=== PATIENT | male | born 1960 | race Caucasian/White ===

== ENCOUNTER 2017-01-18 14:53 | Emergency (ER) | payer OTHER ==
[2017-01-18 15:05] VITALS: BP 173/94; PULSE 101; TEMP 97.9; BMI 28.3
--- NOTE | 2017-01-18 15:42 | PDOC ---
History of Present Illness - General Chief Complaint: Blood Pressure Problem Stated Complaint: SINUS Time Seen by Provider: 01/18/17 15:36 - History of Present Illness Initial Comments: 01/18/17 15:38 56 yo M with h/o HTN, seasonal allergies, and recurrent sinusitis who presents with sinus pressure. Patient endorses sinus pressure and dull frontal and maxillary sinus pain for the past 4 days. Also complains of congestion, rhinorrhea, mild non productive cough that have been stable for the past 4 days. Denies fevers/chills, N/V, teeth parviz, purulent discharge, ear pain, itching eyes, SOB, chest pain, lightheadedness, wheezing, hemtoptysis. No abdominal or urinary complaints. Has attempted OTC Tylenol and mucinex for past 4 days with no relief of symptoms. Compliant Losartan-HCTZ 25-100, Carvedilol 12.5 Nuclear stress test/Perfusion scan (05/02/16): Small mid inferior wall defect partially reversible. LVEF 73 %. PCP Dr. Christian Rosado. Past History - Past Medical History Allergies/Adverse Reactions: Allergies Allergy/AdvReac Type Severity Reaction Status Date / Time No Known Allergies Allergy Verified 01/18/17 15:00 Home Medications: Ambulatory Orders Amoxicillin/Potassium Clav [Augmentin 875-125 Tablet] 1 each PO BID #10 tablet MDD 2 tab 01/18/17 Losartan/Hydrochlorothiazide [Losartan-Hctz 100-25 mg Tab] 100 mg PO DAILY 01/18 COPD: No HTN: Yes Other medical history: SINUSITIS - Suicide/Smoking/Psychosocial Hx Smoking History: Never smoked Information on smoking cessation initiated: No Hx Alcohol Use: No Drug/Substance Use Hx: No Substance Use Type: None Review of Systems - Review of Systems Comments:: 01/18/17 15:41 GENERAL/CONSTITUTIONAL: No fever or chills. No weakness. HEAD, EYES, EARS, NOSE AND THROAT: No change in vision. No ear pain or discharge. No sore throat. CARDIOVASCULAR: No chest pain or shortness of breath RESPIRATORY: + congestion. No cough, wheezing, or hemoptysis. GASTROINTESTINAL: No nausea, vomiting, diarrhea or constipation. GENITOURINARY: No dysuria, frequency, or change in urination. MUSCULOSKELETAL: No joint or muscle swelling or pain. No neck or back pain. SKIN: No rash NEUROLOGIC: No headache, vertigo, loss of consciousness, or change in strength/ sensation. ENDOCRINE: No increased thirst. No abnormal weight change HEMATOLOGIC/LYMPHATIC: No anemia, easy bleeding, or history of blood clots. ALLERGIC/IMMUNOLOGIC: No hives or skin allergy. 1 *Physical Exam - Vital Signs Last Vital Signs Temp Pulse Resp BP Pulse Ox 97.9 F 101 H 18 173/94 99 01/18/17 14:57 01/18/17 14:57 01/18/17 14:57 01/18/17 14:57 01/18/17 14:57 - Physical Exam Comments: 01/18/17 15:42 GENERAL: Awake, alert, and fully oriented, in no acute distress HEAD: No signs of trauma, normocephalic, atraumatic EYES: PERRLA, EOMI, sclera anicteric, conjunctiva clear ENT: + Frontal and maxillary sinus ttp. Auricles normal inspection, hearing grossly normal, nares patent, oropharynx clear without exudates. Moist mucosa NECK: Normal ROM, supple, no lymphadenopathy, JVD, or masses LUNGS: No distress, speaks full sentences, clear to auscultation bilaterally HEART: Regular rate and rhythm, normal S1 and S2, no murmurs, rubs or gallops, peripheral pulses normal and equal bilaterally. EXTREMITIES : Normal inspection, Normal range of motion, no edema. No clubbing or cyanosis. NEUROLOGICAL: Cranial nerves II through XII grossly intact. Normal speech, normal gait, no focal sensorimotor deficits SKIN: Warm, Dry, normal turgor, no rashes or lesions noted. Medical Decision Making - Medical Decision Making 01/18/17 16:00 56 yo M with h/o HTN, seasonal allergies, and recurrent sinusitis who presents with sinus pressure and dull frontal/forehead and maxillary sinus pain for the past 4 days. Endorses, rhinorrhea, and intermittent mild non productive cough ( now resolved) that have been stable for the past 4 days. Denies fevers/chills, chest pain, SOB or lower respiratory tract symptoms. No other complaints. Physical exam with frontal and maxillary sinus ttp. BP of 173/94 in triage. Has attempted OTC Tylenol and mucinex for past 4 days with no relief of symptoms. Compliant Losartan-HCTZ 25-100, Carvedilol 12.5 Nuclear stress test/Perfusion scan (05/02/16): Small mid inferior wall defect partially reversible. LVEF 73 % . It is possible that Pt. BP elevated 2/2 Dextromethorphan / Guaifenesin ( Mucinex DM). Patient most likely with acute/viral rhinosinusitis. Low suspicion of findings to suggest bacterial sinusitis Conservative management vs. antibiotic. ED Course: Will send amoxicillin to pharmacy. Discussed return precautions with patient and advised to f/u with outpatient provider.Stable D/c. *DC/Admit/Observation/Transfer Diagnosis at time of Disposition: Sinusitis Qualifiers: Sinusitis location: frontal Chronicity: acute Recurrence: not specified as recurrent Qualified Code(s): J01.10 - Acute frontal sinusitis, unspecified - Discharge Dispostion Disposition: HOME Condition at time of disposition: Stable Admit: No - Prescriptions Prescriptions: Amoxicillin/Potassium Clav [Augmentin 875-125 Tablet] 1 each PO BID #10 tablet MDD 2 tab - Referrals Referrals: Christian Rosado [Primary Care Provider] - - Patient Instructions Printed Discharge Instructions: DI for High Blood Pressure, How to Monitor Your Blood Pressure at Home Additional Instructions: Please return to the emergency department if you develop new or worsening symptoms or concerns. Please take amoxicillin two times daily for 5 days. Please follow up with your primary care provider within the next week. Print Language: BURMESE - Post Discharge Activity - Attestations Physician Attestion: 01/18/17 16:49 I attest to the information provided in this note.
[2017-01-18] MEDS ORDERED: OXYMETAZOLINE 0.05% NASAL SOLUTION 15 ML BOTTLE NS ONE (16:19)
== END 2017-01-18 17:13 | disposition home or self-care (01) ==
LOC: JERFT 14:53 → JER 14:53
DX: J01.10 Acute frontal sinusitis, unspecified (principal); I10 Essential (primary) hypertension
CPT/HCPCS: 99281-25

== ENCOUNTER 2018-12-04 11:43 | Emergency (ER) | payer OTHER ==
[2018-12-04 11:49] VITALS: BP 158/93; PULSE 94; TEMP 98.2; BMI 25.4
--- NOTE | 2018-12-04 12:10 | PDOC ---
History of Present Illness - General Chief Complaint: Cold Symptoms Stated Complaint: COLD SYMPTOMS Time Seen by Provider: 12/04/18 11:53 - History of Present Illness Initial Comments: 12/04/18 12:08 58 y/o M with URI symptoms x5 days Past History - Past Medical History Allergies/Adverse Reactions: Allergies Allergy/AdvReac Type Severity Reaction Status Date / Time No Known Allergies Allergy Verified 01/18/17 15:00 Home Medications: Ambulatory Orders Amoxicillin/Potassium Clav [Augmentin 875-125 Tablet] 1 each PO BID #10 tablet MDD 2 tab 01/18/17 Losartan/Hydrochlorothiazide [Losartan-Hctz 100-25 mg Tab] 100 mg PO DAILY 01/18 COPD: No HTN: Yes - Immunization History Immunization Up to Date: No - Psycho Social/Smoking Cessation Hx Smoking History: Never smoked Have you smoked in the past 12 months: No Information on smoking cessation initiated: No Hx Alcohol Use: No Drug/Substance Use Hx: No Substance Use Type: None Review of Systems - Review of Systems Constitutional: No: Fever HEENTM: Yes: Nose Congestion Respiratory: Yes: Cough *Physical Exam - Vital Signs Last Vital Signs Temp Pulse Resp BP Pulse Ox 98.2 F 94 H 18 158/93 98 12/04/18 11:46 12/04/18 11:46 12/04/18 11:46 12/04/18 11:46 12/04/18 11:46 - Physical Exam Comments: 12/04/18 12:08 HEAD: NC/AT EYES: Conjuntiva clear Ears: Canals and TM's normal NOSE: No d/c THROAT: Moist mucous membrances, oral pharanx clear, uvula midline NECK: Supple without adenopathy CARDIAC: S1 S2 LUNGS: CTA Full and Equal breath sounds ABDOMEN: Soft NT ND MS: Full ROM in all joints without edema NEUROLOGIC: No gross sensory or motor deficits, NVID SKIN: Normal color and temperature no lesions or rashes Medical Decision Making - Medical Decision Making 12/04/18 12:09 Viral URI, discussed no antibiotics at this time and too late for flu treatment with 5 days of symptoms. Pt to f/u with PCP Discharge - Discharge Information Problems reviewed: Yes Clinical Impression/Diagnosis: Viral URI Condition: Stable Disposition: HOME - Admission No - Follow up/Referral Referrals: Christian Rosado [Primary Care Provider] - - Patient Discharge Instructions Patient Printed Discharge Instructions: DI for Viral Upper Respiratory Infection -- Adult Additional Instructions: Return to the emergency room should symptoms worsen. Without fail, follow up with your primary care physician in 1-2 days for further evaluation and treatment options. - Post Discharge Activity
== END 2018-12-04 12:17 | disposition home or self-care (01) ==
LOC: JERFT 11:43
DX: J06.9 Acute upper respiratory infection, unspecified (principal); B97.89 Other viral agents as the cause of diseases classified elsewhere; I10 Essential (primary) hypertension
CPT/HCPCS: 99282-25

== ENCOUNTER 2023-02-04 05:20 | Day surgery (SDC) | payer OTHER ==
[2022-12-16 11:38] VITALS: BMI 26.6
[~2023-02-04 05:20] MED LIST: ACETAMINOPHEN 325 MG TABLET (FP) PO PRN; BSS (NA/CA/MG/K) BALANCED SALT SOLUTION OPHTH SOLN 15 ML BOTTLE OS ONE; CHONDROITIN SU A/HYALUR SOD 1 KIT IO ONE; CYCLOPENTOLATE HCL 1% OPHTH SOLN 2 ML BOTTLE OP SCH; EPINEPHrine/PF 1 MG/1 ML (1:1,000) AMPULE SQ ONE; HYALURONATE SODIUM 23 MG/1 ML SYRINGE IO ONE; KETOROLAC TROMETHAMINE 0.5% EYE DROP 1 DROP DROPS OP SCH; LIDOCAINE HCL 1% PRESERVATIVE FREE - 30ML VIAL IO ONE; OFLOXACIN 0.3% OPHTHALMIC SOLUTION 5 ML BOTTLE OP SCH; PHENYLEPHRINE 2.5% OPHTH SOLN 15 ML BOTTLE OP SCH; POVIDONE-IODINE 5% OPHTHALMIC PREP 30 ML SOLUTION OS ONE; TETRACAINE 0.5% OPHTH SOLN 2 ML BOTTLE TP ONE; TROPICAMIDE 1% OPHTH SOLN 15 ML BOTTLE OP SCH
[2023-02-04] MEDS ORDERED: BSS (NA/CA/MG/K) BALANCED SALT SOLUTION OPHTH SOLN 15 ML BOTTLE ONE (07:32)
[2023-02-04] MEDS ORDERED: POVIDONE-IODINE 5% OPHTHALMIC PREP 30 ML SOLUTION ONE (07:32)
[2023-02-04] MEDS ORDERED: TETRACAINE 0.5% OPHTH SOLN 2 ML BOTTLE ONE (07:32)
[2023-02-04] MEDS ORDERED: LIDOCAINE HCL/PF 1% SDV 5ML VIAL ONE (07:34)
[2023-02-04] MEDS ORDERED: CYCLOPENTOLATE HCL 1% OPHTH SOLN 2 ML BOTTLE ONE (07:56)
[2023-02-04] MEDS ORDERED: KETOROLAC TROMETHAMINE 0.5% EYE DROP 1 DROP DROPS ONE (07:56)
[2023-02-04] MEDS ORDERED: TROPICAMIDE 1% OPHTH SOLN 15 ML BOTTLE ONE (07:56)
[2023-02-04] MEDS ORDERED: PHENYLEPHRINE 2.5% OPTHALMIC DROP 2ML BOTTLE ONE (07:56)
[2023-02-04] MEDS ORDERED: OFLOXACIN 0.3% OPHTHALMIC SOLUTION 5 ML BOTTLE ONE (07:57)
[2023-02-04] MEDS ORDERED: CYCLOPENTOLATE HCL 1% OPHTH SOLN 2 ML BOTTLE OS ONE ×3 (08:05→08:25)
[2023-02-04] MEDS ORDERED: TROPICAMIDE 1% OPHTH SOLN 15 ML BOTTLE OS ONE ×3 (08:05→08:25)
[2023-02-04] MEDS ORDERED: PHENYLEPHRINE 2.5% OPHTH SOLN 15 ML BOTTLE OS ONE ×3 (08:05→08:25)
[2023-02-04] MEDS ORDERED: OFLOXACIN 0.3% OPHTHALMIC SOLUTION 5 ML BOTTLE OS ONE ×3 (08:05→08:25)
[2023-02-04] MEDS ORDERED: KETOROLAC TROMETHAMINE 0.5% EYE DROP 1 DROP DROPS OS ONE ×3 (08:05→08:25)
[2023-02-04] MEDS ORDERED: TETRACAINE 0.5% OPHTH SOLN 2 ML BOTTLE TP ONE (09:36)
[2023-02-04] MEDS ORDERED: MIDAZOLAM HCL 2 MG/2 ML SINGLE DOSE VIAL ONE (09:37)
[2023-02-04] MEDS ORDERED: TRYPAN BLUE 0.5 ML DISP.SYRIN IO ONE ×2 (09:38→09:44)
[2023-02-04] MEDS ORDERED: POVIDONE-IODINE 5% OPHTHALMIC PREP 30 ML SOLUTION OS ONE ×2 (09:40)
[2023-02-04] MEDS ORDERED: BSS (NA/CA/MG/K) BALANCED SALT SOLUTION OPHTH SOLN 15 ML BOTTLE OS ONE (09:43)
[2023-02-04] MEDS ORDERED: LIDOCAINE HCL 1% PRESERVATIVE FREE - 30ML VIAL IO ONE (09:44)
[2023-02-04] MEDS ORDERED: HYALURONATE SODIUM 23 MG/1 ML SYRINGE IO ONE (09:44)
[2023-02-04] MEDS ORDERED: CHONDROITIN SU A/HYALUR SOD 1 KIT IO ONE (09:44)
[2023-02-04] MEDS ORDERED: PROPOFOL 20 ML ONE (09:45)
[2023-02-04] MEDS ORDERED: BUPIVACAINE HCL/PF 0.75% 10 ML VIAL NR ONE (09:52)
[2023-02-04] MEDS ORDERED: LIDOCAINE HCL/PF 2% SDV 5ML VIAL INF ONE (09:52)
[2023-02-04] MEDS ORDERED: EPINEPHrine/PF 1 MG/1 ML (1:1,000) AMPULE SQ ONE (10:11)
[2023-02-04 10:49] VITALS: RESP 20
[2023-02-04 12:00] VITALS: BP 130/70; PULSE 60; TEMP 97
== END 2023-02-04 11:40 | disposition home or self-care (01) ==
LOC: JASU-SURG 05:20
PROVIDERS: ATTEND Ophthalmology
PROC: 08B Eye, Excision (ICD-10-PCS; principal; 2023-02-04 10:00)
DX: H26.9 Unspecified cataract (principal)
CPT/HCPCS: V2632